=== PATIENT | male | born 1950 | race Caucasian/White ===

== ENCOUNTER 2019-08-25 14:06 | Observation (INO) | payer OTHER, SELFPAY ==
[2019-08-25 14:41] LABS: #Basophils 0.1 thou/uL (0.0-0.2); #Eosinphils 0.2 thou/uL (0.0-0.7); #Lymphocytes 1.3 thou/uL (1.20-3.40); #Monocytes 0.4 thou/uL (0.11-0.59); #Neutrophils 3.4 thou/uL (1.40-6.50); %Eosinophils 2.8 % (0.0-10.0); %Lymphocytes 24.8 % (21.0-51.0); %Neutrophils 63.4 % (42.0-75.0); Hemoglobin 13.8 g/dL (14.0-18.0); Mean Corpuscular HGB CONC 33.1 g/dL (32.0-36.0); Mean Corpuscular Hemoglobin 30.2 pg (27.0-31.0); Mean Platelet Volume 6.4 fL (7.4-10.4); Platelet Count 185 thou/uL (130-400); RBC Distribution Width 12.9 % (11.5-14.5); Red Blood Cell (RBC) Count 4.57 mill/uL (4.70-6.10); White Blood Cell (WBC) Count 5.4 thou/uL (4.8-10.8)
--- NOTE | 2019-08-25 15:12 | RAD ---
PORTABLE CHEST: HISTORY: Chest pain. FINDINGS: Heart size within normal limits. There are atherosclerotic changes of the aorta. The lungs are ishmael r of infiltrates. No significant bony findings. IMPRESSION: No active intrathoracic disease. POS: [facility]
[2019-08-25 15:21] LABS: ALT (SGPT) 14 U/L (8-55); AST (SGOT) 16 U/L (5-34); Albumin 3.9 g/dL (3.4-4.8); Alkaline Phosphatase 70 U/L (40-110); Anion Gap 12 mmol/L (10-20); BUN (Urea Nitrogen) 12 mg/dL (8.4-25.7); Bilirubin, Total 0.5 mg/dL (0.2-1.2); Calc. Creatinine Clearance 0 mL/min (70-130); Carbon Dioxide 24 mmol/L (23-31); Chloride 107 mmol/L (98-107); Estimated GFR-MDRD 75; Glucose 98 mg/dL (80-115); Potassium 3.7 mmol/L (3.5-5.1); Protein, Total 6.9 g/dL (5.8-8.1); Sodium 139 mmol/L (136-145)
[2019-08-25 19:19] VITALS: BMI 27.2
[2019-08-25] MEDS ORDERED: Nitroglycerin 0.4 MG TAB (25 Tab Bottle) PO PRN (19:57)
[2019-08-25] MEDS ORDERED: Acetaminophen 325 MG TAB PO PRN (19:57)
[2019-08-25] MEDS ORDERED: Senokot S 8.6-50 MG TAB PO PRN (19:57)
[2019-08-25] MEDS ORDERED: Bisacodyl 10 MG SUPP PR PRN (19:57)
[2019-08-25] MEDS ORDERED: Ondansetron PF 4 MG/2 ML Vial IVP PRN (19:57)
[2019-08-25] MEDS ORDERED: Guaifenesin DM 100-10/5 ML UDCUP PO PRN (19:57)
[2019-08-25] MEDS ORDERED: Sodium Chloride 0.9% 1,000 ML IV SCH (20:00)
--- NOTE | 2019-08-25 20:24 | HP ---
REASON FOR ADMISSION: Chest pain. HISTORY OF PRESENTING ILLNESS: The patient gives history of coming home after walking his dog and developed chest pain. This was retrosternal and 10/10 in intensity. It was associated with shortness of breath and palpitation. This lasted for nearly 2 minutes or so. He called his . Finally, they called EMS and the patient was brought here. He is currently chest pain free. The patient also has had history of fever of 101.2 degrees on Tuesday with dry cough and being fatigued for 2 weeks or so. He never got tested for flu then. No prior cardiac workup. No complaints of PND or orthopnea. PAST MEDICAL AND SURGICAL HISTORY: The patient has no medical history. Has had right big toe and right middle finger surgery done in the past. CURRENT MEDICATIONS: None known. ALLERGIES: ALLERGIC TO PENICILLIN. PERSONAL HISTORY: Does not abuse alcohol or drugs. No history of smoking. Lives with his . He is very active in life. FAMILY HISTORY: Mother at the age of 87. She has had a pacemaker and coronary artery disease. Father of massive NV at the age of 70. Code status is full. Power of attorney lawyer is his . REVIEW OF SYSTEMS: CONSTITUTIONAL: Negative for weight loss or gain, ability to conduct usual activities. SKIN: Negative for rash, itching. EYES: Negative for double vision, pain. ENT/MOUTH: Negative for nose bleeding, neck stiffness, pain, tenderness. CARDIOVASCULAR: Negative for palpitations, dyspnea on exertion, orthopnea. RESPIRATORY: Negative for shortness of breath, wheezing, cough, hemoptysis, fever or night sweats. GASTROINTESTINAL: Negative for poor appetite, abdominal pain, heartburn, nausea , vomiting, constipation, or diarrhea. GENITOURINARY: Negative for urgency, frequency, dysuria, nocturia. MUSCULOSKELETAL: Negative for pain, swelling. NEUROLOGIC/PSYCHIATRIC: Negative for anxiety, depression. ALLERGY/IMMUNOLOGIC: Negative for skin rash, bleeding tendency. PHYSICAL EXAMINATION: GENERAL: The patient is a 69-year-old male who is currently not in any acute distress. VITAL SIGNS: Blood pressure 140/84, pulse 76 per minute, respiratory rate 18 per minute, temperature 97.8 degrees Fahrenheit, and saturating 98% on room air. NECK: Supple. No elevated JVD. HEENT: Eyes; extraocular muscles intact. Pupils reacting to light. Oral cavity. Mucous membranes are dry. No exudates or congestion. CARDIOVASCULAR: S1, S2 heard. Regular rhythm. RESPIRATORY: Air entry 1+ bilateral. No rales or rhonchi. ABDOMEN: Soft. Bowel sounds heard. No tenderness, rigidity, or guarding. EXTREMITIES: No peripheral edema or calf tenderness. Peripheral pulses are 2+, bilateral. No ischemic ulcerations or gangrene. CENTRAL NERVOUS SYSTEM: No gross focal deficits noted. The patient is alert, awake, oriented well. PSYCHIATRIC: The patient's mood is euthymic. No hallucinations or delusions. LABORATORY DATA: EKG done shows normal sinus rhythm at 68 beats per minute. There is RBBB seen. White count of 5.4, hemoglobin and hematocrit 13 and 41, platelet count 185 with 63% neutrophils, MCV is 91. Electrolytes are stable. BUN 12, creatinine 1.0. Troponin x2 negative. Liver enzymes within normal limits. BUN is 12, creatinine 1.0, albumin is 3.9. Chest x-ray done shows no active intrathoracic disease. CLINICAL IMPRESSION AND PLAN: The patient will be under observation on telemetry for chest pain, rule out acute coronary syndrome. He has had 2 sets of cardiac enzymes which are negative. EKG does not show any significant ST-T wave changes. We will obtain nuclear stress test in the morning. We will also obtain a lipid profile in the morning. He will be on full-dose aspirin, sublingual nitroglycerin p.r.n., and 1 L of normal saline at 100 mL per hour. The patient has not had screening colonoscopy, but has not had any rectal bleed in the past. He will need to talk to his primary care physician for outpatient referral for colonoscopy. Job ID: [id number] [facility]
[2019-08-25] MEDS: Famotidine 20 MG TAB PO SCH (20:36)
[2019-08-25 22:18] LABS: Troponin I Less than 0.010 ng/mL (< 0.028)
[2019-08-26 05:24] LABS: #Eosinphils 0.3 thou/uL (0.0-0.7); #Lymphocytes 1.6 thou/uL (1.20-3.40); #Monocytes 0.4 thou/uL (0.11-0.59); #Neutrophils 2.4 thou/uL (1.40-6.50); %Basophils 0.8 % (0.0-1.0); %Eosinophils 6.1 % (0.0-10.0); %Lymphocytes 34.2 % (21.0-51.0); %Monocytes 9.1 % (0.0-10.0); %Neutrophils 49.9 % (42.0-75.0); Hemoglobin 12.8 g/dL (14.0-18.0); Mean Corpuscular Hemoglobin 30.4 pg (27.0-31.0); Mean Corpuscular Volume 92.3 fL (78.0-98.0); Mean Platelet Volume 6.6 fL (7.4-10.4); Platelet Count 159 thou/uL (130-400); RBC Distribution Width 12.9 % (11.5-14.5); Red Blood Cell (RBC) Count 4.19 mill/uL (4.70-6.10); White Blood Cell (WBC) Count 4.8 thou/uL (4.8-10.8)
[2019-08-26 05:46] LABS: Anion Gap 10 mmol/L (10-20); BUN (Urea Nitrogen) 11 mg/dL (8.4-25.7); Calc. Creatinine Clearance 92 mL/min (70-130); Calcium 8.2 mg/dL (7.8-10.44); Carbon Dioxide 27 mmol/L (23-31); Cardiac Risk 4.4 (Less than 4.5); Chloride 107 mmol/L (98-107); Cholesterol 162 mg/dl (< 200 Desired); Estimated GFR-MDRD 67; Glucose 87 mg/dL (80-115); HDL Cholesterol 37 mg/dL (>60 Neg Risk); LDL Cholesterol, Calculated 105 mg/dL; Potassium 4.1 mmol/L (3.5-5.1); Sodium 140 mmol/L (136-145); Triglycerides 99 mg/dL (Less than 150)
[2019-08-26] MEDS ORDERED: Prevnar 13-Val Conj/PF 0.5 ML SYRINGE IM ONE (09:00)
[2019-08-26] MEDS ORDERED: Aspirin 325 mg Enteric Coated Tablet PO SCH (09:00)
[2019-08-26] MEDS ORDERED: Enoxaparin Sodium 40 MG/0.4 ML SYRINGE SC SCH (09:00)
[2019-08-26] MEDS: Famotidine 20 MG TAB PO SCH (10:13)
[2019-08-26] MEDS ORDERED: Albuterol Sulfate 1.25 MG/3 ML NEB NEB SCH ×2 (11:15→15:00)
[2019-08-26 15:35] VITALS: BP 151/74; TEMP 97.3
--- NOTE | 2019-08-26 16:01 | NM ---
EXAM: CARDIAC SPECT HISTORY: Chest pain TECHNIQUE: A myocardial perfusion scan was performed using the single isotope 1 day protocol with darryl hnetium 99m sestamibi. [10 mCi] was injected intravenously for the rest exam followed by 30 mCi for the stress study. Exercise stress was monitored and interpreted by EM Leger FINDINGS: Homogeneous tracer distribution is seen in the myocardial segments on stress and rest image s without fixed or reversible defects. Gated SPECT LVEF: 67% Wall motion exam: Normal IMPRESSION: Normal myocardial perfusion scan
--- NOTE | 2019-08-27 11:53 | DIS ---
DATE OF ADMISSION: 08/25/2019 DATE OF DISCHARGE: 08/26/2019 DISCHARGE DISPOSITION: Home. PRIMARY DISCHARGE DIAGNOSIS: Chest pain, which is noncardiac, likely acute bronchitis. PROCEDURES DONE DURING HOSPITALIZATION: Chest x-ray done showed no active intrathoracic disease. Nuclear stress test done showed ejection fraction of 67%. Wall motion was normal. There were no fixed or reversible defects noted. H and H 12 and 38, platelet count 159, MCV is 92. Troponin x3 negative. Total cholesterol 162, LDL 105, triglycerides 99, and HDL 37. DISCHARGE MEDICATIONS: 1. Albuterol inhaler q.6 hourly p.r.n. 2. Tessalon Perles 100 mg p.o. 3 times daily p.r.n. for 5 days. 3. Mucinex 1200 mg twice daily for 5 days. ALLERGIES: ALLERGIC TO PENICILLIN. DISCHARGE PLAN: The patient to follow up with Dr. Forbes, his primary care physician in 1 week. BRIEF COURSE DURING HOSPITALIZATION: The patient initially came in with complaints of retrosternal chest pain with associated shortness of breath, cough, and palpitation. In view of this, the patient was placed under observation on telemetry. Three sets of troponin were done, which were negative. Nuclear stress test done showed no reversible ischemia or fixed defects with normal wall motion. His chest x-ray did not reveal any infiltrate. The patient was given a prescription for albuterol inhaler. Likely the patient has had acute bronchitis. His respiratory virus panel PCR was negative as well. He needs to follow up with his primary care physician in 1 week[address] Mr. Gleason has not had any further chest pains during his brief stay here. Please note I have seen and examined the patient on the day of discharge. Job ID: [id number]
--- NOTE | 2019-08-28 05:41 | STRESS ---
Acquisition Time: 2019-08-26 12:54:16 Total Exercise Time: 00:03:38 Test Indications: CHEST PAIN Medications: Protocol: MAYELA Max HR: 107 BPM 69% of Pred: 153 BPM Max BP: 164/084 mmHG Max Work Load: 4.6 METS RESTING ECG: NORMAL SINUS RHYTHM AT 64 BPM WITH A COMPLETE RIGHT BUNDLE BRANCH BLOCK SYMPTOMS: DYSPNEA ON EXERTION NORMAL BP RESPONSE ECTOPY: OCCASIONAL PVCS ECG STRESS: NO SIGNIFICANT CHANGES INTERPRETATION: INDETERMINATE/AWAIT NUCLEAR IMAGES FOR DEFINITIVE DIAGNOSIS COMMENTS: CHANGED TO IVET-WALK AT 2:00 DUE TO DIZZINESS Confirmed by COLBY FRENCH ELLEN ([id number]) on 08/28/2019 5:41:17 AM Referred By: MD Priyanka JUNG Confirmed By:WILLIAM FRENCH PA-C
== END 2019-08-26 17:10 | disposition home or self-care (01) ==
LOC: ERS 14:06 → 2SW 19:13
PROVIDERS: ADMIT Internal Medicine; ATTEND Internal Medicine
DX: R07.89 Other chest pain (principal); I45.10 Unspecified right bundle-branch block; F17.220 Nicotine dependence, chewing tobacco, uncomplicated; Z88.0 Allergy status to penicillin
CPT/HCPCS: 36415; 71045; 78452; 80048; 80053; 80061; 84146; 84484; 85025; 87633; 93005; 93017; 94640; 94760; A9500; G0378

== ENCOUNTER 2019-09-06 08:17 | Outpatient (CLI) | payer OTHER ==
--- NOTE | 2019-09-07 10:15 | PET ---
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 Exam requested for initial staging. TECHNIQUE: PET scanning with CT attenuation correction was performed from the base of the brain through the prox imal thighs following the intravenous administration of 14 mCi [id number] in the right hand. COMPARISON: None. CORRELATION: CT head, chest, abdomen, and pelvis of 08/28/2019 from [facility]. FINDINGS: There is a 3.5 cm long hypermetabolic area of increased FDG localization in the mid thoracic esophagu s with a SUV of 8.1. Adjacent to this, in the posterior mediastinum, is a hypermetabolic 12.0 x 15.0 mm left paraesophageal lymph node with a SUV of 3.2. No hypermetabolic cervical, hilar, axillary, abdominal, pelvic, or inguinal lymph nodes are seen. No hypermetabolic pulmonary nodules, liver, adrenal, or skeletal lesions are seen. There is physiologic activity in the GI and tracts, heart, and visualized portions of the brain. The CT scan used for attenuation correction demonstrates no evidence of pleural effusions or ascites. 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 POS: [facility]
== END 2019-09-06 08:18 | disposition home or self-care (01) ==
LOC: PET 08:17
PROVIDERS: ATTEND Internal Medicine Hematology & Oncology
DX: C79.31 Secondary malignant neoplasm of brain (principal); C80.1 Malignant (primary) neoplasm, unspecified
CPT/HCPCS: 78815; A9552